=== PATIENT | female | born 1960 | race Caucasian/White ===

== ENCOUNTER 2023-06-22 11:23 | Outpatient (CLI) | payer OTHER, SELFPAY ==
--- NOTE | 2023-06-22 | ECG_ITS ---
[facility] Test Date: 2023-06-22 Pat Name: Kristina Berkowitz Department: Room: Gender: Female [employer] Training Supervisor: Kayla Bell : 1960 Requested By: Donna Gonzalez Order Number: [id number] Sisi MD: Saran Wilson M.D. Interpretive Statements NAME OF STUDY: TREADMILL STRESS TEST INDICATION: [Chest Pain, ] EXERCISE DATA: The patient was exercised by Nikolay protocol. Baseline heart rate was 62 beats per minute. Baseline blood pressure was 120/69 millimeters of mercury. Maximal predicted heart rate was 158 beats per minute. Maximum heart rate achieved was 148, which was 93 % of the maximum predicted heart rate. Maximum blood pressure was 190/54 millimeters of mercury. Total exercise time was 5 minutes and 36 seconds. Maximum METs achieved was 7 . The reason for ending the test was completion of protocol. The patient complained of shortness of breath during the stress test, which then resolved at the end of the test. ELECTROCARDIOGRAM: BASELINE: Showed sinus rhythm, normal axis, no significant ST-T changes at the baseline noted. [] EXERCISE: At the peak exercise level, [] No significant ST-T changes suggestive of ischemia noted. [] RECOVERY: During the recovery period, heart rate dropped appropriately. No significant ST-T changes in the recovery suggestive of ischemia noted. [] CONCLUSION: 1. Exercise capacity is good 2. Heart rate response was appropriate 3. Blood pressure response was appropriate 4. Symptoms not suggestive of ischemia. 5. Stress test does not indicate ischemia. Electronically Signed On 06-28-2023 12:28:18 CDT by Saran Wilson M.D. [email or web address]
[2023-06-22 11:45] VITALS: BMI 28.0
[2023-06-22 12:15] VITALS: BP 120/68; PULSE 83
== END 2023-06-22 11:24 | disposition home or self-care (01) ==
PROVIDERS: Visit Provider Registered Nurse
DX: R07.9 Chest pain, unspecified (principal)
CPT/HCPCS: 93017

== ENCOUNTER → 2024-06-23 09:39 | Outpatient (BNVA) | payer OTHER, SELFPAY | PROVIDERS: PCP Nurse Practitioner Family; Visit Provider Nurse Practitioner | DX: S52.522A Torus fracture of lower end of left radius, initial encounter for closed fracture (principal); W19.XXXA Unspecified fall, initial encounter; Y92.009 Unspecified place in unspecified non-institutional (private) residence as the place of occurrence of the external cause | CPT/HCPCS: 73110 ==

== ENCOUNTER → 2024-07-07 11:30 | Outpatient (BNVA) | payer OTHER, SELFPAY | PROVIDERS: PCP Nurse Practitioner Family; Visit Provider Nurse Practitioner | DX: S52.522D Torus fracture of lower end of left radius, subsequent encounter for fracture with routine healing (principal); W19.XXXD Unspecified fall, subsequent encounter; Y92.009 Unspecified place in unspecified non-institutional (private) residence as the place of occurrence of the external cause | CPT/HCPCS: 73110 ==

== ENCOUNTER 2024-07-07 12:48 | Outpatient (CLI) | payer OTHER, SELFPAY | END 2024-07-07 12:49 | disposition home or self-care (01) | LOC: SOT 12:49 | PROVIDERS: PCP Nurse Practitioner Family; Visit Provider Nurse Practitioner | DX: Z46.89 Encounter for fitting and adjustment of other specified devices (principal); S52.522D Torus fracture of lower end of left radius, subsequent encounter for fracture with routine healing; W18.30XD Fall on same level, unspecified, subsequent encounter | CPT/HCPCS: L3982 ==

== ENCOUNTER → 2024-07-28 07:58 | Outpatient (BNVA) | payer OTHER, SELFPAY | PROVIDERS: PCP Nurse Practitioner Family; Visit Provider Nurse Practitioner | DX: S52.522D Torus fracture of lower end of left radius, subsequent encounter for fracture with routine healing (principal); W19.XXXD Unspecified fall, subsequent encounter; Y92.009 Unspecified place in unspecified non-institutional (private) residence as the place of occurrence of the external cause | CPT/HCPCS: 73110 ==

== ENCOUNTER → 2024-08-11 12:42 | Outpatient (BNVA) | payer OTHER, SELFPAY | PROVIDERS: PCP Nurse Practitioner Family; Visit Provider Nurse Practitioner | DX: S52.522D Torus fracture of lower end of left radius, subsequent encounter for fracture with routine healing (principal); W19.XXXD Unspecified fall, subsequent encounter; Y92.009 Unspecified place in unspecified non-institutional (private) residence as the place of occurrence of the external cause | CPT/HCPCS: 73110 ==